=== PATIENT | female | born 1950 | race Caucasian/White ===

== ENCOUNTER → 2019-04-30 | Outpatient (CLI) | payer BC, MEDICARE ==
[~2019-04-30] MED LIST: ALBU17IN INH; CLAR10CA3 PO; FURO20TA2 PO; K-TA10TA2 PO; LIDO1OIN2 TOP; MELO15TA28 PO; METF500T13 PO; NAPR220C PO; SYMB16INH INH; XANA0.5T PO
== END ==
LOC: M RAD 09:57
PROVIDERS: ATTEND Orthopaedic Surgery
DX: Z53.9 Procedure and treatment not carried out, unspecified reason (principal)

== ENCOUNTER → 2019-05-23 | Outpatient (CLI) | payer MEDICARE ==
--- NOTE | 2019-05-23 13:49 | REP ---
MRI lumbar spine: New 05/23/2019. Indication: Low back pain. Comparison: None. Technique: Multiplanar short and long TR sequences of the lumbar spine were performed without IV Gadolinium. Findings: Very minimal dextroscoliosis of the lumbar spine is present centered at L3/L4. Very minimal spondylolisthesis of L5 on S1 is present. 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 Endplate degenerative sequelae are noted most pronounced at L5/S1. Disc dessication is present throughout. There is considerable disc space narrowing at L5/S1 and to a lesser extent at L2/L3. The visualized cord is normal. L1/L2: There is no focal disc herniation or significant spinal canal / neural foraminal narrowing. L2/L3: Disc and spur complex is present most pronounced anteriorly. There is a small right lateral annular fissure. Mild spinal canal and neural foraminal narrowing is noted. L3/L4: Diffuse disc bulge, ligamental laxity and facet arthropathy are present with moderate lateral recess narrowing, more pronounced on the right. Mild bilateral neural foraminal narrowing is present. L4/L5: Diffuse disc bulge, ligamental laxity and bilateral facet arthropathy are present. There is severe right and moderate to severe left recess narrowing. Moderate bilateral neural foraminal narrowing is present. L5/S1: Diffuse disc and spur complex is present. Bilateral facet arthropathy is noted. Mild to moderate recess and neural foraminal narrowing is present bilaterally. 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 Electronically Signed by Stephane Ramos DO 05/23/2019 01:41 P
== END ==
LOC: M RAD 12:23
PROVIDERS: ATTEND Orthopaedic Surgery
DX: M51.87 Other intervertebral disc disorders, lumbosacral region (principal); M51.86 Other intervertebral disc disorders, lumbar region; M25.78 Osteophyte, vertebrae; M51.26 Other intervertebral disc displacement, lumbar region; M47.896 Other spondylosis, lumbar region

== ENCOUNTER → 2021-09-07 | Outpatient (CLI) | payer MEDICARE | LOC: M RAD 11:28 | PROVIDERS: ATTEND Nurse Practitioner Family | DX: R60.9 Edema, unspecified (principal) ==

== ENCOUNTER → 2021-11-18 | Outpatient (CLI) | payer MEDICARE | LOC: M RAD 11:10 | PROVIDERS: ATTEND Nurse Practitioner Family | DX: R42 Dizziness and giddiness (principal); I70.219 Atherosclerosis of native arteries of extremities with intermittent claudication, unspecified extremity; I65.23 Occlusion and stenosis of bilateral carotid arteries ==

== ENCOUNTER → 2021-12-31 | Outpatient (CLI) | payer MEDICARE | LOC: M WHC 10:32 | PROVIDERS: ATTEND Nurse Practitioner Family | DX: Z12.31 Encounter for screening mammogram for malignant neoplasm of breast (principal); M85.89 Other specified disorders of bone density and structure, multiple sites ==

== ENCOUNTER → 2022-12-09 | Outpatient (CLI) | payer MEDICARE | LOC: M PAIN 13:00 | PROVIDERS: ATTEND Nurse Practitioner Family | DX: M51.16 Intervertebral disc disorders with radiculopathy, lumbar region (principal); G89.29 Other chronic pain; E11.9 Type 2 diabetes mellitus without complications; J44.9 Chronic obstructive pulmonary disease, unspecified; F17.200 Nicotine dependence, unspecified, uncomplicated; Z88.0 Allergy status to penicillin; Z88.1 Allergy status to other antibiotic agents; Z88.8 Allergy status to other drugs, medicaments and biological substances; Z79.84 Long term (current) use of oral hypoglycemic drugs; Z79.899 Other long term (current) drug therapy ==

== ENCOUNTER → 2023-02-13 | Outpatient (CLI) | payer MEDICARE ==
[~2023-02-13] MED LIST changes: -K-TA10TA2 PO; +POTA-165 PO
== END ==
LOC: M PAIN 13:45
PROVIDERS: ATTEND Nurse Practitioner Family
DX: M51.16 Intervertebral disc disorders with radiculopathy, lumbar region (principal); G89.29 Other chronic pain; E11.9 Type 2 diabetes mellitus without complications; J44.9 Chronic obstructive pulmonary disease, unspecified; F17.200 Nicotine dependence, unspecified, uncomplicated; Z88.0 Allergy status to penicillin; Z88.1 Allergy status to other antibiotic agents; Z88.8 Allergy status to other drugs, medicaments and biological substances; Z79.84 Long term (current) use of oral hypoglycemic drugs; Z79.899 Other long term (current) drug therapy

== ENCOUNTER → 2023-05-03 | Outpatient (CLI) | payer MEDICARE | LOC: M RAD 13:51 | PROVIDERS: ATTEND Nurse Practitioner Family | DX: M43.02 Spondylolysis, cervical region (principal); M54.2 Cervicalgia ==

== ENCOUNTER → 2024-06-18 | Outpatient (CLI) | payer MEDICARE | LOC: M RAD 10:59 | PROVIDERS: ATTEND Physician Assistant | DX: I87.2 Venous insufficiency (chronic) (peripheral) (principal) ==